=== PATIENT | female | born 1965 | race Caucasian/White ===

== ENCOUNTER → 2016-03-29 | Outpatient (CLI) | payer BC ==
[2016-03-29 13:17] LABS: ABSOLUTE LYMPHOCYTES (AUTO) 2.9 10^3/uL (0.5-4.7); ABSOLUTE MONOCYTES (AUTO) 0.5 10^3/uL (0.1-1.4); BASOPHILS % (AUTO) 0.5 % (0-2); EOSINOPHILS % (AUTO) 0.6 % (0-6); HEMOGLOBIN 13.5 g/dL (12.0-15.5); HGB HCT DIFFERENCE -0.5; LYMPHOCYTES % (AUTO) 53.3 % (13-45); MEAN CORPUSCULAR VOLUME 91 fl (80-97); MONOCYTES % (AUTO) 9.4 % (3-13); RED BLOOD COUNT 4.51 10^6/uL (3.72-5.28); RED CELL DISTRIBUTION WIDTH 13.3 % (11.5-14.0); SEGMENTED NEUTROPHILS % (AUTO) 36.2 % (42-78); WHITE BLOOD COUNT 5.4 10^3/uL (4.0-10.5)
[2016-03-29 13:39] LABS: ALBUMIN 4.2 g/dL (3.5-5.0); GLUCOSE 80 mg/dL (75-110); TOTAL PROTEIN 7.1 g/dL (6.3-8.2)
[2016-03-29 13:40] LABS: ANION GAP 13 (5-19)
[2016-03-29 13:42] LABS: ALANINE AMINOTRANSFERASE 22 U/L (9-52); ALKALINE PHOSPHATASE 71 U/L (38-126); ASPARTATE AMINO TRANSFERASE 23 U/L (14-36); BILIRUBIN,TOTAL 0.6 mg/dL (0.2-1.3); BLOOD UREA NITROGEN 16 mg/dL (7-20); CALCIUM 9.6 mg/dL (8.4-10.2); CARBON DIOXIDE 27 mmol/L (22-30); CHLORIDE 100 mmol/L (98-107); CREATININE RESULT 0.85 mg/dL (0.52-1.25); LIPASE 368.5 U/L (23-300); POTASSIUM 4.5 mmol/L (3.6-5.0); SODIUM 140.2 mmol/L (137-145)
== END ==
LOC: OD 11:58
PROVIDERS: ATTEND Surgery
DX: R10.9 Unspecified abdominal pain (principal); K59.00 Constipation, unspecified; K83.8 Other specified diseases of biliary tract
CPT/HCPCS: 36415; 80053; 83690; 85025

== ENCOUNTER → 2016-04-02 | Outpatient (CLI) | payer BC, OTHER | LOC: RAD 09:00 | PROVIDERS: ATTEND Surgery | DX: R10.9 Unspecified abdominal pain (principal); K59.00 Constipation, unspecified | CPT/HCPCS: 74177 ==

== ENCOUNTER 2016-05-21 08:36 | Day surgery (SDC) | payer BC ==
[~2016-05-21 08:36] MED LIST: EPINEPHRINE INJ 1 MG/10 ML DISP.SYRIN ONE; FLUMAZENIL INJ 0.5 MG/5 ML VIAL IV ONE; GLUCAGON,HUMAN RECOMB 1 MG INJ ONE; MIDAZOLAM 2 MG/2 ML INJ ONE; NALOXONE HCL INJ/PF 0.4 MG/1 ML SDV ONE; ONDANSETRON HCL INJ/PF 4 MG/2 ML SDV ONE; PROMETHAZINE HCL INJ 25 MG/1 ML VIAL ONE
[2016-05-21] MEDS: FENTANYL CITRATE INJ/PF 100 MCG/2 ML AMPUL ONE ×3 (10:06→10:15)
--- NOTE | 2016-05-21 10:45 | Operative Report ---
Operative Report DATE OF SURGERY: 05/21/16 PREOPERATIVE DIAGNOSIS: Constipation POSTOPERATIVE DIAGNOSIS: Constipation OPERATION: Colonoscopy SURGEON: ALISSA MARTINEZ ANESTHESIA: Moderate Sedation TISSUE REMOVED OR ALTERED: None COMPLICATIONS: None ESTIMATED BLOOD LOSS: none INTRAOPERATIVE FINDINGS: Markedly redundant colon PROCEDURE: Informed consent was obtained. Patient was brought to the endoscopy suite and placed on the endoscopy suite table with her left side down. Digital rectal exam revealed no palpable perianal masses. Endoscope was passed via the patient 's anus it was fed to the cecum. The bowel prep was good visualization was good. The patient's colon was markedly redundant making the procedure difficult however adequate visualization was able to be obtained. The cecum, right colon, transverse colon, descending colon, sigmoid colon and the rectum were all normal with no polyps no masses no diverticuli. Patient tolerated procedure well with no apparent complications. Recommend repeat colonoscopy in 10 years. Sooner if any problems.
--- NOTE | 2016-05-21 10:47 | PDOC DISCHARGE SUMMARY ---
Discharge Summary (SDC) - Discharge Final Diagnosis: Constipation. Date of Surgery: 05/21/16 Discharge Date: 05/21/16 Condition: Good Treatment or Instructions: Underwent colonoscopy. Follow-up with me next week. Discharge Diet: As Tolerated Discharge Activity: Activity As Tolerated Report the Following to Your Physician Immediately: Increase in Pain, Unusual Bleeding
[2016-05-21 11:27] VITALS: BP 101/51
== END 2016-05-21 11:27 | disposition home or self-care (01) ==
LOC: END 08:36
PROVIDERS: ATTEND Surgery
PROC: 0DJD8ZZ Inspection of Lower Intestinal Tract, Via Natural or Artificial Opening Endoscopic (ICD-10-PCS; principal; 2016-05-21 09:45)
DX: K59.00 Constipation, unspecified (principal); Q43.8 Other specified congenital malformations of intestine; K83.8 Other specified diseases of biliary tract; R10.30 Lower abdominal pain, unspecified; F32.9 Major depressive disorder, single episode, unspecified; Z79.899 Other long term (current) drug therapy
CPT/HCPCS: 45378; 81025; J2250; J3010; J0171; J1610; J2310; J2405; J2550; J3490

== ENCOUNTER 2016-10-14 15:32 | Inpatient (IN) | payer BC ==
[2016-10-14 16:22] LABS: ABSOLUTE EOSINOPHILS # (AUTO) 0.1 10^3/uL (0.0-0.6); ABSOLUTE LYMPHOCYTES (AUTO) 1.9 10^3/uL (0.5-4.7); ABSOLUTE MONOCYTES (AUTO) 0.5 10^3/uL (0.1-1.4); ABSOLUTE NEUT (AUTO) 2.8 10^3/uL (1.7-8.2); BASOPHILS % (AUTO) 0.4 % (0-2); EOSINOPHILS % (AUTO) 1.1 % (0-6); HEMOGLOBIN 13.3 g/dL (12.0-15.5); HGB HCT DIFFERENCE 1.9; LYMPHOCYTES % (AUTO) 35.2 % (13-45); MEAN CORPUSCULAR HEMOGLOBIN 31.6 pg (27.0-33.4); MEAN CORPUSCULAR HGB CONC 35.1 g/dL (32.0-36.0); MEAN CORPUSCULAR VOLUME 90 fl (80-97); MONOCYTES % (AUTO) 9.8 % (3-13); RED BLOOD COUNT 4.23 10^6/uL (3.72-5.28); RED CELL DISTRIBUTION WIDTH 13.8 % (11.5-14.0); SEGMENTED NEUTROPHILS % (AUTO) 53.5 % (42-78); WHITE BLOOD COUNT 5.3 10^3/uL (4.0-10.5)
[2016-10-14 16:44] LABS: ALANINE AMINOTRANSFERASE 27 U/L (9-52); ALBUMIN 4.1 g/dL (3.5-5.0); ALKALINE PHOSPHATASE 77 U/L (38-126); ANION GAP 9 (5-19); ASPARTATE AMINO TRANSFERASE 22 U/L (14-36); BILIRUBIN,DIRECT 0.3 mg/dL (0.0-0.4); BILIRUBIN,TOTAL 0.4 mg/dL (0.2-1.3); BLOOD UREA NITROGEN 12 mg/dL (7-20); CALCIUM 9.4 mg/dL (8.4-10.2); CARBON DIOXIDE 29 mmol/L (22-30); CHLORIDE 105 mmol/L (98-107); CREATININE RESULT 0.92 mg/dL (0.52-1.25); GLUCOSE 97 mg/dL (75-110); LIPASE 710.8 U/L (23-300); SODIUM 142.8 mmol/L (137-145); TOTAL PROTEIN 7.1 g/dL (6.3-8.2)
[2016-10-14] MEDS ORDERED: ONDANSETRON HCL INJ/PF 4 MG/2 ML SDV IV PRN (20:44)
[2016-10-14] MEDS ORDERED: TEMAZEPAM 15 MG CAPSULE PO ONE (23:30)
[2016-10-14] MEDS ORDERED: TEMAZEPAM 7.5 MG CAPSULE ONE (23:35)
[2016-10-15 06:19] LABS: ABSOLUTE EOSINOPHILS # (AUTO) 0.2 10^3/uL (0.0-0.6); ABSOLUTE LYMPHOCYTES (AUTO) 1.9 10^3/uL (0.5-4.7); ABSOLUTE MONOCYTES (AUTO) 0.5 10^3/uL (0.1-1.4); ABSOLUTE NEUT (AUTO) 2.2 10^3/uL (1.7-8.2); BASOPHILS % (AUTO) 0.7 % (0-2); EOSINOPHILS % (AUTO) 3.3 % (0-6); HEMATOCRIT 35.8 % (36.0-47.0); HEMOGLOBIN 12.6 g/dL (12.0-15.5); LYMPHOCYTES % (AUTO) 39.7 % (13-45); MEAN CORPUSCULAR HEMOGLOBIN 31.4 pg (27.0-33.4); MEAN CORPUSCULAR HGB CONC 35.2 g/dL (32.0-36.0); MEAN CORPUSCULAR VOLUME 89 fl (80-97); MONOCYTES % (AUTO) 10.2 % (3-13); RED BLOOD COUNT 4.03 10^6/uL (3.72-5.28); RED CELL DISTRIBUTION WIDTH 14.1 % (11.5-14.0); SEGMENTED NEUTROPHILS % (AUTO) 46.1 % (42-78); WHITE BLOOD COUNT 4.9 10^3/uL (4.0-10.5)
[2016-10-15 06:34] LABS: ALANINE AMINOTRANSFERASE 23 U/L (9-52); ALBUMIN 3.6 g/dL (3.5-5.0); ALKALINE PHOSPHATASE 65 U/L (38-126); ANION GAP 8 (5-19); ASPARTATE AMINO TRANSFERASE 18 U/L (14-36); BILIRUBIN,DIRECT 0.2 mg/dL (0.0-0.4); BILIRUBIN,TOTAL 0.5 mg/dL (0.2-1.3); BLOOD UREA NITROGEN 11 mg/dL (7-20); CALCIUM 8.8 mg/dL (8.4-10.2); CARBON DIOXIDE 29 mmol/L (22-30); CHLORIDE 105 mmol/L (98-107); CREATININE RESULT 0.79 mg/dL (0.52-1.25); GLUCOSE 87 mg/dL (75-110); LIPASE 225.2 U/L (23-300); SODIUM 141.8 mmol/L (137-145); TOTAL PROTEIN 6.4 g/dL (6.3-8.2)
[2016-10-15 06:50] LABS: POTASSIUM 3.8 mmol/L (3.6-5.0)
[2016-10-15] MEDS ORDERED: SUCCINYLCHOLINE CHLORIDE INJ 200 MG/10 ML VIAL ONE (08:59)
[2016-10-15] MEDS ORDERED: ROCURONIUM BROMIDE INJ 50 MG/5 ML VIAL IV ONE (08:59)
[2016-10-15] MEDS ORDERED: ENOXAPARIN SODIUM INJ 40 MG/0.4 ML DISP.SYRIN SUBCUT SCH (10:00)
--- NOTE | 2016-10-15 10:27 | PDOC H&P ---
History of Present Illness Admission Date/PCP: LITO MARTINEZ MD Patient complains of: Abdominal pain History of Present Illness: MIKALA SINCLAIR is a 51 year old female presenting with 2 week history of upper abdominal pain along with abdominal bloating. She has been experiencing bowel movements without relief of her bloating symptoms. She denies any fever. The pain appears particularly worse in the last several days. She was evaluated several months ago for constipation and abdominal bloating. She had a negative colonoscopy. CT scan was only remarkable for incidental liver hemangiomas. Ultrasound demonstrated evidence of gallbladder sludge. Her laboratory evaluation was noteworthy at that time for very mild elevation of her lipase. With medical management her constipation symptoms have improved. There is no history of jaundice. No history of alcohol abuse. Past Medical History Cardiac Medical History: Denies: Coronary Artery Disease, Myocardial Infarction, Hypertension Pulmonary Medical History: Reports: Bronchitis, Pneumonia Denies: Asthma, Chronic Obstructive Pulmonary Disease (COPD) Neurological Medical History: Denies: Seizures Musculoskeltal Medical History: Denies: Arthritis Hematology: Denies: Anemia Past Surgical History Past Surgical History: Denies: Hysterectomy Social History Smoking Status: Unknown if Ever Smoked Frequency of Alcohol Use: Occasional Family History Parental Family History Reviewed: No Children Family History Reviewed: No Sibling(s) Family History Reviewed.: No Medication/Allergy Home Medications: Bupropion HCl [Wellbutrin Xl 150 mg 24hr Tablet] 1 tab PO DAILY 05/20/16 Temazepam 15 mg PO QHS 05/20/16 Allergies/Adverse Reactions: No Known Allergies Allergy (Verified 05/21/16 08:33) Physical Exam General appearance: PRESENT: no acute distress, cooperative Neck exam: PRESENT: other - No swelling no tenderness Respiratory exam: PRESENT: clear to auscultation cleo Cardiovascular exam: PRESENT: RRR GI/Abdominal exam: PRESENT: other - Soft, mildly distended, tender across her epigastric region and the right upper quadrant without peritoneal signs. Extremities exam: PRESENT: other - No swelling Neurological exam: PRESENT: alert, awake Psychiatric exam: PRESENT: appropriate affect Skin exam: PRESENT: warm Results Laboratory Results: 10/14/16 15:41 10/14/16 15:41 10/14/16 10/14/16 15:41 15:41 WBC 5.3 RBC 4.23 Hgb 13.3 Hct 38.0 MCV 90 MCH 31.6 MCHC 35.1 RDW 13.8 Plt Count 216 Seg Neutrophils % 53.5 Lymphocytes % 35.2 Monocytes % 9.8 Eosinophils % 1.1 Basophils % 0.4 Absolute Neutrophils 2.8 Absolute Lymphocytes 1.9 Absolute Monocytes 0.5 Absolute Eosinophils 0.1 Absolute Basophils 0.0 Sodium 142.8 Potassium 5.0 Chloride 105 Carbon Dioxide 29 Anion Gap 9 BUN 12 Creatinine 0.92 Est GFR ( Amer) > 60 Est GFR (Non-Af Amer) > 60 Glucose 97 Calcium 9.4 Total Bilirubin 0.4 AST 22 ALT 27 Alkaline Phosphatase 77 Total Protein 7.1 Albumin 4.1 Lipase 710.8 H Assessment & Plan - Diagnosis (1) Pancreatitis Qualifiers: Chronicity: acute Pancreatitis type: biliary Is this a current diagnosis for this admission?: YesPlan: Ultrasound today demonstrated a distended gallbladder but no gallbladder wall thickening no pericholecystic fluid. She was noted with gallbladder sludge. Her most likely etiology of pancreatitis is biliary, that is sludge pancreatitis. Will admit the patient place her on bowel rest and IV fluids and once pancreatitis has subsided we will plan laparoscopic cholecystectomy.
--- NOTE | 2016-10-15 10:30 | PDOC PROGRESS REPORT ---
Subjective Progress Note for:: 10/15/16 Subjective:: Feels better. Still some residual abdominal pain. Physical Exam Vital Signs: Temp Pulse Resp BP Pulse Ox 97.7 F 81 16 114/55 L 100 10/15/16 07:28 10/15/16 07:28 10/15/16 07:28 10/15/16 07:28 10/15/16 07:28 Intake & Output 10/14/16 10/15/16 10/16/16 06:59 06:59 06:59 Intake Total 30 Balance 30 Weight 63.503 kg General appearance: PRESENT: no acute distress, cooperative Respiratory exam: PRESENT: clear to auscultation cleo Cardiovascular exam: PRESENT: RRR GI/Abdominal exam: PRESENT: other - Soft, mildly distended, mild epigastric and right upper quadrant abdominal tenderness with no peritoneal signs. Improved from yesterday. Extremities exam: PRESENT: other - No swelling Results Laboratory Results: 10/15/16 06:01 10/15/16 06:01 10/14/16 10/14/16 10/15/16 15:41 15:41 06:01 WBC 5.3 4.9 RBC 4.23 4.03 Hgb 13.3 12.6 Hct 38.0 35.8 L MCV 90 89 MCH 31.6 31.4 MCHC 35.1 35.2 RDW 13.8 14.1 H Plt Count 216 186 Seg Neutrophils % 53.5 46.1 Lymphocytes % 35.2 39.7 Monocytes % 9.8 10.2 Eosinophils % 1.1 3.3 Basophils % 0.4 0.7 Absolute Neutrophils 2.8 2.2 Absolute Lymphocytes 1.9 1.9 Absolute Monocytes 0.5 0.5 Absolute Eosinophils 0.1 0.2 Absolute Basophils 0.0 0.0 Sodium 142.8 Potassium 5.0 Chloride 105 Carbon Dioxide 29 Anion Gap 9 BUN 12 Creatinine 0.92 Est GFR ( Amer) > 60 Est GFR (Non-Af Amer) > 60 Glucose 97 Calcium 9.4 Total Bilirubin 0.4 AST 22 ALT 27 Alkaline Phosphatase 77 Total Protein 7.1 Albumin 4.1 Lipase 710.8 H 10/15/16 06:01 WBC RBC Hgb Hct MCV MCH MCHC RDW Plt Count Seg Neutrophils % Lymphocytes % Monocytes % Eosinophils % Basophils % Absolute Neutrophils Absolute Lymphocytes Absolute Monocytes Absolute Eosinophils Absolute Basophils Sodium 141.8 Potassium 3.8 D Chloride 105 Carbon Dioxide 29 Anion Gap 8 BUN 11 Creatinine 0.79 Est GFR ( Amer) > 60 Est GFR (Non-Af Amer) > 60 Glucose 87 Calcium 8.8 Total Bilirubin 0.5 AST 18 ALT 23 Alkaline Phosphatase 65 Total Protein 6.4 Albumin 3.6 Lipase 225.2 Assessment & Plan - Diagnosis (1) Pancreatitis Qualifiers: Chronicity: acute Pancreatitis type: biliary Is this a current diagnosis for this admission?: YesPlan: Looks better this morning. Labs improved. Still bloated. Will check abdominal pelvic CT scan. Plan laparoscopic cholecystectomy during this admission.
[2016-10-15] MEDS: LANSOPRAZOLE 30 MG TAB.RAP.DR PO SCH ×2 (11:15→18:14)
[2016-10-15] MEDS: HYDROMORPHONE HCL INJ/PF 2 MG/ML AMPULE IV PRN ×2 (13:42→18:12)
--- NOTE | 2016-10-15 14:30 | RADIOLOGY REPORT (SQ) ---
EXAM DESCRIPTION: CT ABD/PELVIS COMBO COMPLETED DATE/TIME: 10/15/2016 2:11 pm REASON FOR STUDY: Pancreatitis. Please do pancreatic protocol CT COMPARISON: 04/02/2016. TECHNIQUE: Four phase CT scan limited views of the abdomen and pelvis performed with and without int ravenous contrast and without oral contrast. Contrasted imaging performed using helical scanning tino hnique with dynamic intravenous contrast injection. Thin sliced arterial and portal venous phase pos t contrast images acquired. Images reviewed with lung, soft tissue, and bone windows. Reconstructed coronal and sagittal MPR images reviewed. Delayed images for evaluation of the urinary system also acquired and evaluated. All images stored on PACS. All CT scanners at this facility use dose modulation, iterative reconstruction, and/or weight based d osing when appropriate to reduce radiation dose to as low as reasonably achievable (ALARA). [facility]: Dose Right [facility]: CareDose [facility]: Dose Right [facility]: Teradose 4D [facility]: ScraperWiki CONTRAST TYPE AND DOSE: contrast/concentration: Isovue 370.00 mg/ml; Total Contrast Delivered: 44.0 ml; Total Saline Delivered: 74.0 ml RENAL FUNCTION: BUN 11 creatinine 0.79. RADIATION DOSE: Up-to-date CT equipment and radiation dose reduction techniques were employed. CTDIv ol: 5.6 - 16.9 mGy. DLP: 1272 mGy-cm. . LIMITATIONS: None. FINDINGS: NONCONTRASTED IMAGING: No focal masses in the pancreas. No abnormal calcifications in the pancreas. POSTCONTRASTED IMAGING: LOWER CHEST: No significant findings. No nodules or infiltrates. LIVER: Stable 1 cm low-attenuation lesion, likely a hemangioma. No dilated ducts. SPLEEN: No focal lesions in the visualized spleen. PANCREAS: No masses. No significant calcifications. No adjacent inflammation or peripancreatic flui d collections. Pancreatic duct not dilated. GALLBLADDER: No identified stones by CT criteria. No inflammatory changes to suggest cholecystitis. ADRENAL GLANDS: No significant masses or asymmetry. RIGHT KIDNEY AND URETER: No mass, calculi or urinary tract obstruction. LEFT KIDNEY AND URETER: Tiny calyceal calculus. No mass or urinary tract obstruction. AORTA AND VESSELS: Limited visualization without aneurysm. RETROPERITONEUM: No retroperitoneal adenopathy, hemorrhage or masses. BOWEL AND PERITONEAL CAVITY: Limited visualization. No obvious masses or inflammatory changes. ABDOMINAL WALL: No masses. No hernias. BONY STRUCTURES: No significant or acute findings in the visualized bony structures. OTHER: No other significant finding. IMPRESSION: 1. NEGATIVE CT SCAN DEDICATED TO EVALUATION OF THE PANCREAS. NO MASSES, CALCIFICATIONS, INFLAMMATORY CHANGES, OR FLUID COLLECTIONS. 2. STABLE 1 CM LOW-ATTENUATION LESION IN THE LIVER WHICH HAS THE APPEARANCE OF A HEMANGIOMA. 3. TINY NONOBSTRUCTING CALYCEAL CALCULUS IN THE LEFT KIDNEY. TECHNICAL DOCUMENTATION: JOB ID: [id number] Quality ID # [id number]: Final reports with documentation of one or more dose reduction techniques (e.g., Au tomated exposure control, adjustment of the mA and/or kV according to patient size, use of iterative reconstruction technique) 2010 [employer]- All Rights Reserved
[2016-10-15] MEDS: DEXTROSE 5%-1/2 NORMAL SALINE 1,000 ML IV PRN (16:50)
--- NOTE | 2016-10-15 17:46 | PDOC PROGRESS REPORT ---
Subjective Progress Note for:: 10/15/16 Subjective:: nausea Physical Exam Vital Signs: Temp Pulse Resp BP Pulse Ox 97.7 F 81 16 120/60 100 10/15/16 15:10 10/15/16 15:10 10/15/16 15:10 10/15/16 15:10 10/15/16 15:10 Intake & Output 10/14/16 10/15/16 10/16/16 06:59 06:59 06:59 Intake Total 30 Balance 30 Weight 63.503 kg General appearance: PRESENT: no acute distress, cooperative GI/Abdominal exam: PRESENT: other - , Mildly distended, mild epigastric and right upper quadrant tenderness without peritoneal signs. Results Laboratory Results: 10/15/16 06:01 10/15/16 06:01 10/15/16 10/15/16 06:01 06:01 WBC 4.9 RBC 4.03 Hgb 12.6 Hct 35.8 L MCV 89 MCH 31.4 MCHC 35.2 RDW 14.1 H Plt Count 186 Seg Neutrophils % 46.1 Lymphocytes % 39.7 Monocytes % 10.2 Eosinophils % 3.3 Basophils % 0.7 Absolute Neutrophils 2.2 Absolute Lymphocytes 1.9 Absolute Monocytes 0.5 Absolute Eosinophils 0.2 Absolute Basophils 0.0 Sodium 141.8 Potassium 3.8 D Chloride 105 Carbon Dioxide 29 Anion Gap 8 BUN 11 Creatinine 0.79 Est GFR ( Amer) > 60 Est GFR (Non-Af Amer) > 60 Glucose 87 Calcium 8.8 Total Bilirubin 0.5 AST 18 ALT 23 Alkaline Phosphatase 65 Total Protein 6.4 Albumin 3.6 Lipase 225.2 Impressions: Abdomen/Pelvis CT 10/15/16 00:00 IMPRESSION: 1. NEGATIVE CT SCAN DEDICATED TO EVALUATION OF THE PANCREAS. NO MASSES, CALCIFICATIONS, INFLAMMATORY CHANGES, OR FLUID COLLECTIONS. 2. STABLE 1 CM LOW-ATTENUATION LESION IN THE LIVER WHICH HAS THE APPEARANCE OF A HEMANGIOMA. 3. TINY NONOBSTRUCTING CALYCEAL CALCULUS IN THE LEFT KIDNEY. Assessment & Plan - Diagnosis (1) Pancreatitis Qualifiers: Chronicity: acute Pancreatitis type: biliary Is this a current diagnosis for this admission?: YesPlan: CT demonstrated no radiographic evidence of pancreatitis. Study was unremarkable other than liver hemangioma and an incidental kidney stone. In light of the normalization of her lipase and improvement of her abdominal pain and no evidence of pancreatitis by CT scan, will proceed with laparoscopic cholecystectomy. I have discussed with the patient the risk and benefits of the procedure including risk of cardiopulmonary complications, bile duct and intestinal injury, conversion to an open procedure, bleeding and infection. Patient understands and agrees to proceed.
[2016-10-15] MEDS ORDERED: PROMETHAZINE HCL 25 MG SUPP.RECT PR ONE (20:30)
[2016-10-15] MEDS ORDERED: FENTANYL CITRATE INJ/PF 100 MCG/2 ML AMPUL ONE (21:01)
[2016-10-15] MEDS ORDERED: ONDANSETRON HCL INJ/PF 4 MG/2 ML SDV ONE (21:02)
[2016-10-15] MEDS ORDERED: PROPOFOL INJ 200 MG/20 ML VIAL IV ONE (21:02)
[2016-10-15] MEDS ORDERED: MIDAZOLAM 2 MG/2 ML INJ ONE (21:02)
[2016-10-15] MEDS ORDERED: DEXAMETHASONE SOD PHOSPHATE INJ 4 MG/1 ML VIAL ONE (21:02)
[2016-10-15] MEDS ORDERED: HYDROMORPHONE HCL INJ/PF 2 MG/ML AMPULE ONE (21:03)
[2016-10-15] MEDS ORDERED: BUPIVACAINE HCL 0.25 % INJ/PF (2.5 MG/1 ML) 30 ML VIAL ONE (21:47)
[2016-10-15] MEDS ORDERED: TEMAZEPAM 15 MG CAPSULE PO SCH ×2 (22:00)
[2016-10-15] MEDS ORDERED: CEFAZOLIN INJ 1 GM VIAL ONE (22:20)
[2016-10-15] MEDS ORDERED: BUPIVACAINE HCL 0.25 % INJ/PF (2.5 MG/1 ML) 30 ML VIAL INJ ONE (22:42)
[2016-10-15] MEDS ORDERED: MORPHINE SULFATE 10 MG/ML INJ IV PRN ×2 (22:53→23:22)
[2016-10-15] MEDS ORDERED: FENTANYL CITRATE INJ/PF 100 MCG/2 ML AMPUL IV PRN ×3 (22:53)
[2016-10-15] MEDS ORDERED: OXYCODONE-ACETAMINOPHEN 5-325 MG TABLET PO PRN ×2 (22:53)
[2016-10-15] MEDS ORDERED: PROMETHAZINE HCL INJ 25 MG/1 ML VIAL IV PRN ×2 (22:53)
[2016-10-15] MEDS ORDERED: DIPHENHYDRAMINE HCL 50 MG/ML VIAL IV PRN (22:53)
[2016-10-15] MEDS ORDERED: MEPERIDINE HCL/PF INJ 25 MG/1 ML DISP.SYRIN IV PRN (22:53)
--- NOTE | 2016-10-15 23:22 | Operative Report ---
Operative Report DATE OF SURGERY: 10/15/16 PREOPERATIVE DIAGNOSIS: Biliary pancreatitis POSTOPERATIVE DIAGNOSIS: Biliary pancreatitis, chronic cholecystitis OPERATION: Laparoscopic cholecystectomy SURGEON: ALISSA MARTINEZ ANESTHESIA: GA TISSUE REMOVED OR ALTERED: gallbladder COMPLICATIONS: None ESTIMATED BLOOD LOSS: Minimal INTRAOPERATIVE FINDINGS: Normal-appearing bilateral ovaries. Normal-appearing liver. Normal-appearing anterior surface of the stomach and first portion of the duodenum. Mildly distended colon throughout. Distended edematous gallbladder. Normal-appearing anterior abdominal wall. PROCEDURE: Informed consent was obtained. Patient was brought to the operating room placed operating table in supine position. After satisfactory induction of general anesthesia, patient's abdomen was prepped and draped in usual sterile fashion. A supraumbilical incision was made and dissection carried down to the fascia the peritoneal cavity entered without difficulty. Richey trocar was inserted. Pneumoperitoneum produced good patient toleration. 5 mm trocar was placed in the subxiphoid location.Two 5 mm trochars were placed in the right subcostal location. A limited exploratory laparoscopy was performed. Both of the ovaries were visualized and they appeared normal. The anterior surface of the abdominal wall appeared normal. The liver appeared normal. Anterior surface of the stomach and the first portion the duodenum appeared to be normal. The colon appeared to be mildly dilated throughout from the cecum to the sigmoid. No inflammatory changes were noted. The gallbladder appeared dilated and its wall was edematous. The gallbladder was grasped and retracted cephalad over the dome of the liver. The infundibulum of the gallbladder was grasped retracted laterally and inferiorly thus exposing calot's triangle. The cystic duct gallbladder junction was clearly identified and the cystic duct was clipped and divided. Cystic artery was likewise taken. The gallbladder was taken off the gallbladder bed using the hook electrocautery technique. The gallbladder was removed with an Endobag through the Richey trocar site fascial defect. Hemostasis appeared excellent. There was no bile spillage during the case. No irrigation fluid was used during the case. All trochars were removed under the direct vision a laparoscope to ensure hemostasis. The Richey trocar site fascial defect was closed with interrupted Vicryl sutures. All skin incisions were closed with subcuticular interrupted Monocryl sutures. Marcaine was injected at the port sites. Patient tolerated procedure well no apparent complications and was taken to the recovery area in stable condition.
[2016-10-15] MEDS: FENTANYL CITRATE INJ/PF 100 MCG/2 ML AMPUL ONE ×2 (23:43→23:53)
[2016-10-16] MEDS: DEXTROSE 5%-1/2 NORMAL SALINE 1,000 ML IV PRN (05:21)
[2016-10-16 06:43] LABS: ALANINE AMINOTRANSFERASE 29 U/L (9-52); ALBUMIN 3.5 g/dL (3.5-5.0); ALKALINE PHOSPHATASE 68 U/L (38-126); ANION GAP 7 (5-19); ASPARTATE AMINO TRANSFERASE 33 U/L (14-36); BILIRUBIN,DIRECT 0.2 mg/dL (0.0-0.4); BILIRUBIN,TOTAL 0.5 mg/dL (0.2-1.3); BLOOD UREA NITROGEN 8 mg/dL (7-20); CALCIUM 8.7 mg/dL (8.4-10.2); CARBON DIOXIDE 26 mmol/L (22-30); CHLORIDE 106 mmol/L (98-107); GLUCOSE 137 mg/dL (75-110); LIPASE 230.1 U/L (23-300); POTASSIUM 4.2 mmol/L (3.6-5.0); SODIUM 139.3 mmol/L (137-145); TOTAL PROTEIN 6.3 g/dL (6.3-8.2)
--- NOTE | 2016-10-16 09:30 | PDOC PROGRESS REPORT ---
Subjective Progress Note for:: 10/16/16 Subjective:: Feels better still having some epigastric abdominal pain. But improved from yesterday. Physical Exam Vital Signs: Temp Pulse Resp BP Pulse Ox 99.2 F 78 16 101/43 L 98 10/16/16 07:19 10/16/16 07:19 10/16/16 07:19 10/16/16 07:19 10/16/16 07:19 Intake & Output 10/15/16 10/16/16 10/17/16 06:59 06:59 06:59 Intake Total 30 1400 Output Total 410 Balance 30 990 Weight 63.503 kg General appearance: PRESENT: no acute distress, cooperative Respiratory exam: PRESENT: clear to auscultation cleo Cardiovascular exam: PRESENT: RRR GI/Abdominal exam: PRESENT: other - Soft, epigastric abdominal tenderness without peritoneal signs. Results Laboratory Results: 10/15/16 06:01 10/16/16 06:21 10/16/16 06:21 Sodium 139.3 Potassium 4.2 Chloride 106 Carbon Dioxide 26 Anion Gap 7 BUN 8 Creatinine 0.80 Est GFR ( Amer) > 60 Est GFR (Non-Af Amer) > 60 Glucose 137 H Calcium 8.7 Total Bilirubin 0.5 AST 33 ALT 29 Alkaline Phosphatase 68 Total Protein 6.3 Albumin 3.5 Lipase 230.1 Impressions: Abdomen/Pelvis CT 10/15/16 00:00 IMPRESSION: 1. NEGATIVE CT SCAN DEDICATED TO EVALUATION OF THE PANCREAS. NO MASSES, CALCIFICATIONS, INFLAMMATORY CHANGES, OR FLUID COLLECTIONS. 2. STABLE 1 CM LOW-ATTENUATION LESION IN THE LIVER WHICH HAS THE APPEARANCE OF A HEMANGIOMA. 3. TINY NONOBSTRUCTING CALYCEAL CALCULUS IN THE LEFT KIDNEY. Assessment & Plan - Diagnosis (1) Pancreatitis Qualifiers: Chronicity: acute Pancreatitis type: biliary Is this a current diagnosis for this admission?: YesPlan: Will try clear liquids. If she is pain-free that she may advance her diet.
--- NOTE | 2016-10-16 17:51 | PDOC PROGRESS REPORT ---
Subjective Progress Note for:: 10/16/16 Subjective:: Patient feels much better. Tolerating diet well. Minimal pain Physical Exam Vital Signs: Temp Pulse Resp BP Pulse Ox 98.7 F 98 16 108/46 L 98 10/16/16 15:46 10/16/16 15:46 10/16/16 15:46 10/16/16 15:46 10/16/16 15:46 Intake & Output 10/15/16 10/16/16 10/17/16 06:59 06:59 06:59 Intake Total 30 1400 Output Total 410 Balance 30 990 Weight 63.503 kg General appearance: PRESENT: no acute distress, cooperative GI/Abdominal exam: PRESENT: other - Mildly distended. Soft, very mild abdominal tenderness with no peritoneal signs. Markedly improved from before. Results Laboratory Results: 10/15/16 06:01 10/16/16 06:21 10/16/16 06:21 Sodium 139.3 Potassium 4.2 Chloride 106 Carbon Dioxide 26 Anion Gap 7 BUN 8 Creatinine 0.80 Est GFR ( Amer) > 60 Est GFR (Non-Af Amer) > 60 Glucose 137 H Calcium 8.7 Total Bilirubin 0.5 AST 33 ALT 29 Alkaline Phosphatase 68 Total Protein 6.3 Albumin 3.5 Lipase 230.1 Impressions: Abdomen/Pelvis CT 10/15/16 00:00 IMPRESSION: 1. NEGATIVE CT SCAN DEDICATED TO EVALUATION OF THE PANCREAS. NO MASSES, CALCIFICATIONS, INFLAMMATORY CHANGES, OR FLUID COLLECTIONS. 2. STABLE 1 CM LOW-ATTENUATION LESION IN THE LIVER WHICH HAS THE APPEARANCE OF A HEMANGIOMA. 3. TINY NONOBSTRUCTING CALYCEAL CALCULUS IN THE LEFT KIDNEY. Assessment & Plan - Diagnosis (1) Pancreatitis Qualifiers: Chronicity: acute Pancreatitis type: biliary Is this a current diagnosis for this admission?: YesPlan: Status post laparoscopic cholecystectomy. Patient doing very well. feels much better than preadmission. Will discharge patient home.
[2016-10-16 18:34] VITALS: BP 112/62
--- NOTE | 2016-10-16 18:48 | DISCHARGE SUMMARY E ---
Discharge Summary NAME: MIKALA SINCLAIR : 1965 AGE: 51Y ADMITTED: 10/14/2016 DISCHARGED: 10/16/2016 DISCHARGE DIAGNOSES: 1. Biliary pancreatitis. 2. Chronic cholecystitis. PROCEDURE PERFORMED DURING HOSPITALIZATION: Laparoscopic cholecystectomy performed by Dr. Lito Jenkins on October 15, 2016. HOSPITAL COURSE: The patient was initially admitted, placed on bowel rest. She had improvement of her abdominal pain. Her lipase returned to normal. She underwent an abdominopelvic CT scan pancreatic protocol. It demonstrated no pancreatic abnormalities. With sludge seen in the gallbladder by ultrasound, I attributed her pancreatitis to sludge pancreatitis and she subsequently underwent laparoscopic cholecystectomy. She was noted with evidence of chronic cholecystitis during surgery. The patient did well after surgery. She was feeling much better on the day of discharge with minimal amount of abdominal pain. The patient has now been discharged to home in good condition. DISCHARGE INSTRUCTIONS: She will follow up with me next Friday. She is encouraged to stay active at home but avoid strenuous activity. She may shower tomorrow. She may follow a low-fat diet at home. She may resume all of her home medications. Additional medication is Percocet 1 to 2 p.o. q.4 h. p.r.n. pain. She is to stay out of work until next . DICTATING PHYSICIAN: LITO JENKINS M.D. [id number] PHY#: [id number] ID: [id number] JOB#: [id number] ACCT: [id number] cc:LITO JENKINS M.D. > MTDD
== END 2016-10-16 18:45 | disposition home or self-care (01) | DRG 419 ==
LOC: OD 15:32 → 2N 18:48
PROVIDERS: ADMIT Surgery; ATTEND Surgery
PROC: 0FT44ZZ Resection of Gallbladder, Percutaneous Endoscopic Approach (ICD-10-PCS; principal; 2016-10-15 22:00)
DX: K85.10 Biliary acute pancreatitis without necrosis or infection (principal); K81.1 Chronic cholecystitis; D18.09 Hemangioma of other sites; N20.0 Calculus of kidney
CPT/HCPCS: 36415; 74178; 790; 80053; 83690; 84702; 85025; 88304; J0330; J0690; J1100; J1170; J1650; J2250; J2270; J2405; J2704; J3010; J3490

== ENCOUNTER → 2017-05-06 | Outpatient (CLI) | payer BC ==
--- NOTE | 2017-05-06 13:04 | RADIOLOGY REPORT (SQ) ---
EXAM DESCRIPTION: FOOT RIGHT COMPLETE COMPLETED DATE/TIME: 05/06/2017 12:33 pm REASON FOR STUDY: PAIN IN RIGHT FOOT M79.671 PAIN IN RIGHT FOOT COMPARISON: None. NUMBER OF VIEWS: Three views. TECHNIQUE: AP, lateral and oblique without weight bearing radiographic images acquired of the right foot. LIMITATIONS: None. FINDINGS: MINERALIZATION: Normal. BONES: No acute fracture or dislocation. No worrisome bone lesions. No significant osteophytes. JOINTS: No erosions. No rahat-articular osteopenia. No chondrocalcinosis. SOFT TISSUES: No swelling. No calcifications. OTHER: No other significant finding. IMPRESSION: NEGATIVE STUDY OF THE RIGHT FOOT. NO EXPLANATION FOR PAIN. TECHNICAL DOCUMENTATION: JOB ID: [id number] [employer]- All Rights Reserved
== END ==
LOC: OD 12:17
PROVIDERS: ATTEND Physician Assistant
DX: M79.671 Pain in right foot (principal)

== ENCOUNTER → 2020-03-15 | Outpatient (CLI) | payer BC ==
[~2020-03-15] MED LIST changes: +COVID-19 VACCINE (PFIZER)/PF 30 MCG/0.3 ML VIAL IM ONE; -EPINEPHRINE INJ 1 MG/10 ML DISP.SYRIN ONE; +EPINEPHRINE INJ/PF 1 MG/1 ML AMPULE IM PRN; -FLUMAZENIL INJ 0.5 MG/5 ML VIAL IV ONE; -GLUCAGON,HUMAN RECOMB 1 MG INJ ONE; -MIDAZOLAM 2 MG/2 ML INJ ONE; -NALOXONE HCL INJ/PF 0.4 MG/1 ML SDV ONE; -ONDANSETRON HCL INJ/PF 4 MG/2 ML SDV ONE; -PROMETHAZINE HCL INJ 25 MG/1 ML VIAL ONE
== END ==
LOC: EMPHEALTH 08:11
PROVIDERS: ATTEND Internal Medicine
DX: Z23 Encounter for immunization (principal)
CPT/HCPCS: 91300

== ENCOUNTER → 2020-04-06 | Outpatient (CLI) | payer BC | LOC: EMPHEALTH 08:16 | PROVIDERS: ATTEND Internal Medicine | DX: Z23 Encounter for immunization (principal) | CPT/HCPCS: 91300 ==